=== PATIENT | female | born 1980 | race African-American/Black ===

== ENCOUNTER 2020-12-18 09:22 | Emergency (ER) | payer OTHER ==
[~2020-12-18] VITALS: Ht 182.9 cm; Wt 92.3 kg
[2020-12-18] MEDS ORDERED: NAPROXEN 250 MG TABLET PO ONE (09:45)
[2020-12-18 09:54] VITALS: BP 138/96
== END 2020-12-18 10:42 | disposition home or self-care (01) ==
LOC: EMS 09:27
DX: S20.212A Contusion of left front wall of thorax, initial encounter (principal); J45.909 Unspecified asthma, uncomplicated; E78.00 Pure hypercholesterolemia, unspecified; I10 Essential (primary) hypertension; F17.210 Nicotine dependence, cigarettes, uncomplicated; X58.XXXA Exposure to other specified factors, initial encounter; Y93.89 Activity, other specified; Y92.89 Other specified places as the place of occurrence of the external cause; Y99.8 Other external cause status
CPT/HCPCS: 71046; 93005; 99284; 99285